=== PATIENT | female | born 1990 | race Caucasian/White ===

== ENCOUNTER 2021-01-05 13:40 | Emergency (ER) | payer OTHER, SELFPAY ==
[2021-01-05 13:41] VITALS: BP 134/83; PULSE 98; RESP 18; TEMP 36.8; O2SAT 99; BMI 28.3
--- NOTE | 2021-01-05 14:19 | EKG12_ITS ---
Test Reason : Blood Pressure : / mmHG Vent. Rate : 097 BPM Atrial Rate : 097 BPM P-R Int : 138 ms QRS Dur : 078 ms QT Int : 336 ms P-R-T Axes : 055 062 012 degrees QTc Int : 426 ms Normal sinus rhythm T wave abnormality, consider inferior ischemia Abnormal ECG Confirmed by KIERAN JIMENEZ, JARET ([id number]), newspaper copy editor LULY MILLS ([id number]) on 01/07/2021 11:02:32 AM Referred By: Confirmed By:JARET ALCARAZ MD
[2021-01-05 14:31] LABS: Absolute Neutrophil Count 6.8 X10^3/uL (2.0-7.7); Basophil# 0.06 X10^3/uL; Basophil% 0.6 % (0-1); Eosinophil# 0.23 X10^3/uL; Eosinophils% 2.4 % (0-5); Hematocrit 41.5 % (37-47); Hemoglobin 13.4 g/dL (12.0-15.0); Lymphocyte % 19.1 % (19-41); Mean Corp Hgb Conc 32.3 g/dL (32-36); Mean Corpuscular Hgb 29.6 pg (27.0-32.0); Mean Corpuscular Volume 91.6 fL (81-99); Mean Platelet Vol. 10.2 fl (6.2-12.0); Monocyte# 0.52 X10^3/uL; Monocyte% 5.5 % (0-10); NRBC Flagged by Analyzer 0 % (0-5); Neutrophil % 72.2 % (47-70); Platelet Count 258 K/mm3 (150-450); RBC Distribution Width CV 12.8 % (11.6-14.6); RBC Distribution Width SD 43.1 fl (35.1-43.9); Red Blood Count 4.53 M/mm3 (4.2-5.4); White Blood Count 9.4 K/mm3 (4.4-11.0)
[2021-01-05 14:46] LABS: ALB/GLOB Ratio 1.2 RATIO (0.9-2.4); AST(SGOT) 11 U/L (15-37); Alanine Aminotransfer ALT/SGPT 15 U/L (13-56); Albumin, Serum 4.3 g/dL (3.2-5.0); Alkaline Phosphatase 65 U/L (45-117); Anion Gap 7 (5-15); BUN 12 mg/dL (7-18); BUN/Creat Ratio 13.1 RATIO (10-20); Calcium,Total 9.7 mg/dL (8.5-10.1); Chloride 107 mmol/L (98-107); Creatinine, Serum 0.92 mg/dL (0.55-1.02); EST Glomerular Filtration Rate 76 mL/min (>60); Est Glom Filt Rate - Afr Amer 92 mL/min (>60); Estimated Creatinine Clearance 77.21 ml/min; Globulin 3.5 g/dL (2.2-4.2); Glucose 98 mg/dL (74-106); Potassium 3.7 mmol/L (3.5-5.1); Protein, Total 7.8 g/dL (6.4-8.2); Sodium Level 141 mmol/L (136-145)
--- NOTE | 2021-01-05 15:05 | RAD_ITS ---
STUDY: X-RAY CHEST REASON FOR EXAM: Female, 30 years old. Palpitations TECHNIQUE: AP upright portable view. COMPARISON: None. FINDINGS: The lungs are clear and expanded. There is no demonstrated pleural abnormality. Normal size heart. Normal mediastinum and jose. Normal visualized pulmonary arteries. Normal visualized aortic arch and descending thoracic aorta. Normal visualized thoracic spine. Normal visualized ribs, clavicles, and shoulders. There is no demonstrated abnormality of the visualized soft tissue structures of the upper abdomen. RAD/Chest 1 View (Portable) IMPRESSION: Normal x-ray examination of the chest. Electronically Signed: Chidi Stevens MD at 15:32 EST , Service support ,
[2021-01-05 15:20] VITALS: BP 108/96; BP 123/74; BP 135/89; PULSE 84; PULSE 85; PULSE 86; RESP 14; O2SAT 98
[2021-01-05 15:24] LABS: Bacteria 0 SEEN /hpf (None Seen); Mucous, Urine 0 SEEN /hpf (<or=2+); Red Blood Cells-Urine 0 SEEN /hpf (0-5)
[2021-01-05 15:26] LABS: Color, Urine Yellow (Yellow); Glucose, Dipstick Normal (Normal); Ketone-Dipstick Negative (Negative); Leukocyte Esterase-Dipstick 25 /ul (Negative); Nitrite-Dipstick Negative (Negative); Occult Blood-Urine Negative /ul (Negative); Protein-Dipstick Negative (Negative); Urine Bilirubin Dipstick Negative (Negative); Urine Clarity Clear (Clear); Urine Urobilinogen Normal (Normal)
[2021-01-05 15:38] LABS: Squamous Epithelial Cells - UA 0-5 SEEN /hpf (5-10); White Blood Cells 0-5 SEEN /hpf (0-5)
--- NOTE | 2021-01-05 15:41 | ED.DCSUM_ITS ---
- ER Visit Summary Date of Service: 01/05/21 Chief Complaint: Palpitations History of Present Illness: The patient is a 30 F who presents with palpitations that began today. Patient states she has had episodes where her heart felt like it was racing. Patient states these have been waxing and waning throughout the day. Patient states they are worse with activity. Patient admits to some dizziness and lightheadedness. Patient also admits to some paresthesias in her fingers bilaterally. Patient states earlier today she had throbbing pain in her throat and jaw. Patient does admit to some shortness of breath. Patient denies any fevers or chills. Patient denies any cough. Physical Examination: Vital signs are stable. Patient is afebrile. Patient is in no acute distress. Oral mucosa is pink and moist. Neck is supple. Trachea is midline. There is no JVD noted. Heart was regular rate and rhythm. Lungs are clear and equal bilaterally. Abdomen is soft. Bowel sounds are normal. There is no tenderness. There is no rebound or guarding noted. Skin is warm dry. Cranial nerves II through XII are intact. There are no focal motor or sensory deficits noted. Extremities are intact. There is no calf tenderness or edema. Test Results: EKG was obtained. On my interpretation, it shows a normal sinus rhythm with a rate of 97. There are nonspecific ST-T wave changes in leads III and aVF. There are no acute changes. There are no prior EKGs available for comparison. Portable 1 view chest x-ray was obtained. On my interpretation, lung schaeffer are clear. There is normal cardiac silhouette. Bony thorax is normal. There is no acute process noted. Radiologist also interpreted the x- ray and agrees. CBC, comprehensive metabolic profile, troponin, and urinalysis were obtained were all within normal limits. Emergency Department Course and Treatment: Patient was placed on radiographer cardiac catheterization. There are no further dysrhythmias here in the emergency department. Orthostatic vital signs were obtained. Patient systolic blood pressure did drop with standing and she felt dizzy with this. Patient was given IV fluids. Patient was advised of her findings. Patient was instructed to follow-up with her primary care physician for further evaluation. Patient understood and was agreeable with the plan. All questions were answered. Disposition: Discharge home Impression: 1. Palpitations 2. Orthostasis This note was generated with Dragon dictation software. It may contain incorrect words, spelling, and punctuation that were not noted in review of the chart prior to signing ED Disposition - Plan for ED Patient: Disposition: Home or Assisted Living Diagnosis: Palpitations, Orthostasis Instructions: ED Palpitations Referrals: NOT,DEFINED [NON-STAFF] - 3-5 Days
[2021-01-05] MEDS: 0.9% Normal Saline 1,000 ML 999 ML IV (16:10)
[2021-01-05 16:31] VITALS: BP 113/77; PULSE 88; RESP 14; O2SAT 98
[2021-01-05 17:19] VITALS: BP 108/66; PULSE 83; RESP 15; O2SAT 100
== END 2021-01-05 17:20 | disposition home or self-care (01) ==
PROVIDERS: Emergency Provider Emergency Medicine
DX: R00.2 Palpitations (principal); I95.1 Orthostatic hypotension
CPT/HCPCS: 71045; 80053; 81001; 84484; 85025; 93005; 96360; 99284; J7030

== ENCOUNTER → 2021-01-14 09:09 | Outpatient (CLI) | payer OTHER, SELFPAY ==
[2021-01-05 13:41] VITALS: BMI 28.3
== END ==
PROVIDERS: PCP Student in an Organized Health Care Education/Training Program; Referring Provider Student in an Organized Health Care Education/Training Program; Visit Provider Student in an Organized Health Care Education/Training Program
DX: R00.2 Palpitations (principal); R94.4 Abnormal results of kidney function studies
CPT/HCPCS: 93225; 93226

== ENCOUNTER → 2021-01-16 10:20 | Outpatient (CLI) | payer OTHER, SELFPAY ==
[2021-01-05 13:41] VITALS: BMI 28.3
--- NOTE | 2021-01-16 10:23 | US_ITS ---
STUDY: THYROID ULTRASOUND REASON FOR EXAM: Female, 31 years old. THRYOMEGALY TECHNIQUE: Ultrasound evaluation of the thyroid was performed with real-time and static izquierdo-scale imaging. COMPARISON: None. FINDINGS: RIGHT LOBE: The right lobe of the thyroid gland measures 5.2 x 1.8 x 1.1 cm. There is a heterogeneous echotexture. Nodule 1:7 x 9 x 3 mm cystic anechoic wider than tall smoothly marginated nodule with comet tail artifact (TR 1) in the anterior right lobe consistent with a colloid cyst. Other smaller colloid cyst. LEFT LOBE: The left lobe of the thyroid gland measures 4.7 x 1.6 x 0.9 cm. There is a heterogeneous echotexture. Nodule 2:10 x 4 x 6 mm cystic anechoic wider than tall smoothly marginated nodule with no echogenic foci (TR 1) in the lateral left lobe consistent with a colloid cyst. Other smaller colloid cyst. ISTHMUS: The isthmus measures 2 mm thick. . The regional lymph nodes are normal. US/Thyroid IMPRESSION: Thyroiditis with multiple colloid cysts. Electronically Signed: Jose Luis Neves MD at 12:17 EDT Tel , Service support ,
== END ==
PROVIDERS: PCP Student in an Organized Health Care Education/Training Program; Referring Provider Student in an Organized Health Care Education/Training Program; Visit Provider Student in an Organized Health Care Education/Training Program
DX: R94.4 Abnormal results of kidney function studies (principal); E01.0 Iodine-deficiency related diffuse (endemic) goiter; R00.2 Palpitations; R42 Dizziness and giddiness
CPT/HCPCS: 76536

== ENCOUNTER → 2021-04-24 09:46 | Outpatient (CLI) | payer OTHER, SELFPAY ==
[2021-03-26 10:58] VITALS: BMI 27.8
--- NOTE | 2021-04-24 09:49 | ECHOD_ITS ---
Reason For Study: Palpitations Procedure This was a 2D Doppler, Color Flow transthoracic echocardiogram. The exam was of adequate technical quality. Exam performed in department. Left Ventricle Normal LV size. Left ventricular systolic function is normal. The estimated ejection fraction is 65 %. No evidence for diastolic dysfunction. No regional wall motion abnormalities noted. Right Ventricle Normal RV size. Normal systolic function. Atria Normal left atrium. Normal right atrium. No doppler evidence for ASD. Mitral Valve There is no mitral annular calcification. Mild diffuse mitral valve thickening. Trivial eccentric mitral valve insufficiency. Tricuspid Valve Normal tricuspid valve. Trivial tricuspid valve insufficiency. Right ventricular systolic pressure estimated to be 22 mmHg. Aortic Valve Trisinus/trileaflet aortic valve. Normal aortic valve. Pulmonic Valve The pulmonic valve is not well visualized. Great Vessels The aortic root is not well visualized. Pericardium/Pleural No pericardial effusion. MMode/2D Measurements & Calculations LVIDd: 4.2 cm IVSd: 0.81 cm LA dimension: 2.5 cm LVIDs: 2.8 cm LVPWd: 0.77 cm RVDd: 3.0 cm FS: 32.4 % LAV(MOD-sp4): 30.1 ml LA A4 area: 13.1 cm2 RA A4 area: 11.5 cm2 Time Measurements MV dec time: 0.20 sec Doppler Measurements & Calculations MV E max kenny: 77.4 cm/sec Lat Peak E' Kenny: 16.1 cm/sec Med Peak E' Kenny: 13.9 cm/sec MV A max kenny: 68.7 cm/sec E/E' lat: 4.8 E/E' med: 5.6 MV E/A: 1.1 Ao V2 max: 113.8 cm/sec LV V1 max: 89.8 cm/sec PA V2 max: 73.3 cm/sec Ao max P.2 mmHg LV V1 max P.2 mmHg TR max kenny: 216.1 cm/sec TR max P.7 mmHg ECHO/Echo Complete Interpretation Summary Left ventricular systolic function is normal. The estimated ejection fraction is 65 %. Mild diffuse mitral valve thickening. Trivial eccentric mitral valve insufficiency. Trivial tricuspid valve insufficiency. Right ventricular systolic pressure estimated to be 22 mmHg. No evidence for diastolic dysfunction. Ordering Physician: Gerardo Lee Referring Physician: Issac Huff Performed By: Nabeel Presley RCS
--- NOTE | 2021-04-24 12:52 | STRESSREP_ITS ---
Stress Test Report Date: 04-24-2021 Procedure: Exercise tolerance test Indications: Chest pain Consent: Per the patient Procedure: The patient exercised on a Bal protocol for 7 minutes and 39 seconds completing stage II and 1 minute and 39 seconds of stage III achieving a peak heart rate of 187 bpm (98% predicted maximal heart rate) with a peak blood pres sure 142/68 mmHg and a peak MET capacity of approximately 9 MET's. The baseline ECG demonstrated normal sinus rhythm. The peak exercise ECG demonstrated somatic/motion artifact with no obvious ECG changes. There were no cardiac dysrhythmias pretest, during exercise, or recovery. The functional capacity was considered average. The patient had no complaint of chest discomfort during exercise or recovery The examination was discontinued secondary to dyspnea and leg discomfort. Impression: 1. Technically adequate (percent predicted maximal heart rate greater than 85%) exercise tolerance test 2. Peak exercise ECG with somatic/motion artifact with no obvious ECG changes 3. There were no cardiac dysrhythmias during exercise or recovery This note was generated with Kinc[employer]ation software. It may contain incorrect words, spelling, and punctuation that were not noted in checking the note before signing.
== END ==
PROVIDERS: PCP Student in an Organized Health Care Education/Training Program; Referring Provider Internal Medicine Cardiovascular Disease; Visit Provider Internal Medicine Cardiovascular Disease
DX: R00.2 Palpitations (principal); R00.0 Tachycardia, unspecified; R07.9 Chest pain, unspecified
CPT/HCPCS: 93017; 93306

== ENCOUNTER → 2021-07-17 09:06 | Outpatient (CLI) | payer OTHER, SELFPAY ==
[2021-07-17 12:36] LABS: Hemoglobin A1c 5.5 % (3.8-5.6)
[2021-07-18 09:20] LABS: Thyroid Peroxidase AB 9 IU/mL (0-34)
== END ==
PROVIDERS: PCP Student in an Organized Health Care Education/Training Program; Referring Provider Internal Medicine Endocrinology, Diabetes & Metabolism; Visit Provider Internal Medicine Endocrinology, Diabetes & Metabolism
DX: E04.9 Nontoxic goiter, unspecified (principal); R73.09 Other abnormal glucose
CPT/HCPCS: 36415; 83036; 84443; 86376